=== PATIENT | female | born 1990 | race American Indian/Alaskan Native ===

== ENCOUNTER 2017-07-02 08:26 | Emergency (ER) | payer MEDICAID ==
[2017-07-02 08:34] VITALS: BP 135/80
[2017-07-02] MEDS ORDERED: XYLOCAINE 1% MPF 5 mL INFILTRATI ONE (08:47)
[2017-07-02] MEDS ORDERED: ROCEPHIN IM ONE (08:47)
[2017-07-02] MEDS ORDERED: ZITHROMAX PO ONE (08:47)
--- NOTE | 2017-07-02 08:52 | Emergency Department Report ---
ED Female HPI - General Chief complaint: Urogenital-Female Stated complaint: POSSIBLE STD Time Seen by Provider: 07/02/17 08:41 Source: patient Mode of arrival: Ambulatory Limitations: No Limitations - History of Present Illness Initial comments: This is a 27-year-old female nontoxic, well nourished in appearance, no acute signs of distress presents to the ED for a possible STD. She stated she just found out her boyfriend has sexual intercourse with another male. Patient stated she wanted to be tested for HIV. Patient denies any vaginal discharge, dysuria, polyuria, hematuria, back pain, bowel pain, rash, fever, chills, nausea , vomiting, chest pain, shortness of breath, headache or stiff neck. Patient denies any symptoms. Denies any allergies or past medical history. MD Complaint: possible STD Severity scale (0 -10): 0 Improves with: none Worsens with: none Are you Now?: No Last Menstrual Period: 06/15/17 EDC: 03/22/18 Associated Symptoms: denies other symptoms. denies: vaginal discharge, vaginal bleeding, abdominal pain, nausea/vomiting, fever/chills, headaches, loss of appetite, dysuria, hematuria, rash, seizure, shortness of breath, syncope, weakness - Related Data Sexually active: Yes Previous Rx's Medication Instructions Recorded Last Taken Type Docusate Sodium [Colace] 100 mg PO BID #60 capsule 10/03/15 3 Days Ago Rx Ferrous Sulfate [Feosol 325 MG tab] 325 mg PO BID #60 tablet 10/12/15 Unknown Rx Ibuprofen [Motrin 800 MG tab] 800 mg PO Q6H PRN #30 tablet 10/12/15 Unknown Rx oxyCODONE /ACETAMINOPHEN [Percocet 1 - 2 tab PO Q4H PRN #30 tablet 10/12/15 Unknown Rx 5/325 mg] Lidocain2.5%/Prilocai2.5% [Emla] 5 gm TP ONCE PRN #1 tube 10/14/15 Unknown Rx Allergies Allergy/AdvReac Type Severity Reaction Status Date / Time No Known Allergies Allergy Verified 10/03/15 19:51 ED Review of Systems ROS: Stated complaint: POSSIBLE STD Other details as noted in HPI Constitutional: denies: chills, fever Eyes: denies: eye pain, eye discharge, vision change ENT: denies: ear pain, throat pain Respiratory: denies: cough, shortness of breath, wheezing Cardiovascular: denies: chest pain, palpitations Endocrine: no symptoms reported Gastrointestinal: denies: abdominal pain, nausea, diarrhea Genitourinary: denies: urgency, dysuria, discharge Musculoskeletal: denies: back pain, joint swelling, arthralgia Skin: denies: rash, lesions Neurological: denies: headache, weakness, paresthesias Psychiatric: denies: anxiety, depression Hematological/Lymphatic: denies: easy bleeding, easy bruising ED Past Medical Hx - Past Medical History Previous Medical History?: No Hx Hypertension: No Hx Diabetes: No Hx Deep Vein Thrombosis: No Hx Liver Disease: No Hx Renal Disease: No Hx Sickle Cell Disease: No Hx Seizures: No Hx Asthma: No Hx HIV: No Additional medical history: 3 - Surgical History Past Surgical History?: Yes Additional Surgical History: x3 - Social History Smoking Status: Current Every Day Smoker Substance Use Type: Alcohol - Medications Home Medications: Home Medications Medication Instructions Recorded Confirmed Last Taken Type Docusate Sodium [Colace] 100 mg PO BID #60 capsule 10/03/15 10/13/15 3 Days Ago Rx Ferrous Sulfate [Feosol 325 MG tab] 325 mg PO BID #60 tablet 10/12/15 Unknown Rx Ibuprofen [Motrin 800 MG tab] 800 mg PO Q6H PRN #30 tablet 10/12/15 Unknown Rx oxyCODONE /ACETAMINOPHEN [Percocet 1 - 2 tab PO Q4H PRN #30 tablet 10/12/15 Unknown Rx 5/325 mg] Lidocain2.5%/Prilocai2.5% [Emla] 5 gm TP ONCE PRN #1 tube 10/14/15 Unknown Rx ED Physical Exam - General Limitations: No Limitations General appearance: alert, in no apparent distress - Head Head exam: Present: atraumatic, normocephalic, normal inspection - Eye Eye exam: Present: normal appearance, PERRL, EOMI. Absent: scleral icterus, conjunctival injection, nystagmus, periorbital swelling, periorbital tenderness Pupils: Present: normal accommodation - ENT ENT exam: Present: normal exam, normal orophraynx, mucous membranes moist, TM's normal bilaterally, normal external ear exam - Neck Neck exam: Present: normal inspection - Respiratory Respiratory exam: Present: normal lung sounds bilaterally. Absent: respiratory distress - Cardiovascular Cardiovascular Exam: Present: regular rate, normal rhythm. Absent: systolic murmur, diastolic murmur, rubs, gallop - GI/Abdominal GI/Abdominal exam: Present: soft, normal bowel sounds - Extremities Exam Extremities exam: Present: normal inspection - Back Exam Back exam: Present: normal inspection - Neurological Exam Neurological exam: Present: alert, oriented X3 - Psychiatric Psychiatric exam: Present: normal affect, normal mood - Skin Skin exam: Present: warm, dry, intact, normal color. Absent: rash ED Course Vital Signs 07/02/17 08:32 Temperature 98.5 F Pulse Rate 75 Respiratory 16 Rate Blood Pressure 135/80 O2 Sat by Pulse 100 Oximetry - Reevaluation(s) Reevaluation #1: 07/02/17 08:50 Patient is speaking in full sentences with no signs of distress noted. ED Medical Decision Making - Medical Decision Making 27-year-old female that presents with possible STD exposure. Patient is refusing a pelvic exam and patient stated she just wants to be treated empirically. I will treat patient with Rocephin and azithromycin ED. I instructed the patient to follow up with a primary care doctor or [facility] department HIV testing and other STD exams. I also instructed patient to have her boyfriend be examined as well. At time time of discharge, the patient does not seem toxic or ill in appearance. No acute signs of distress noted. Patient agrees to discharge treatment plan of care. No further questions noted by the patient. Critical care attestation.: If time is entered above; I have spent that time in minutes in the direct care of this critically ill patient, excluding procedure time. ED Disposition Clinical Impression: Possible exposure to STD Disposition: DC-01 TO HOME OR SELFCARE Is pt being admited?: No Does the pt Need Aspirin: No Condition: Stable Instructions: Safe Sex (ED) Additional Instructions: Follow-up with a primary care doctor and pelvic health Department for further evaluation of STDs/HIV testing or if symptoms worsen and continue return to emergency room as soon as possible. Please have your partner tested as well. Referrals: PRIMARY CAREMD [Primary Care Provider] - 3-5 Days MANJEET MCCLAIN MD [Staff Physician] - 3-5 Days [facility] [Outside] - 3-5 Days [facility] [place]Outside] - 3-5 Days [facility] [Outside] - 3-5 Days Forms: Work/School Release Form(ED)
== END 2017-07-02 09:36 | disposition home or self-care (01) ==
LOC: ED 08:26
DX: Z04.8 Encounter for examination and observation for other specified reasons (principal)
CPT/HCPCS: 96372; 99282; J0696